=== PATIENT | male | born 1990 | race African-American/Black ===

== ENCOUNTER 2016-08-25 12:42 | Emergency (ER) | payer OTHER ==
[~2016-08-25] VITALS: Ht 188 cm; Wt 113.4 kg
--- NOTE | 2016-08-25 12:51 | ED GI/GU/ABDOMINAL COMPLAINT ---
See Addendum History of Present Illness General Chief Complaint: General Adult Stated Complaint: BIBA FROM PD LOCKUP FOR ?VOMITING BLOOD Source: patient Exam Limitations: no limitations Vital Signs & Intake/Output Vital Signs & Intake/Output Vital Signs Date Time Temp Pulse Resp B/P B/P Pulse O2 O2 Flow FiO2 Mean Ox Delivery Rate 08/25 1257 97.4 60 20 161/82 99 Allergies Coded Allergies: No Known Allergies (08/25/16) Reconcile Medications Ondansetron (Zofran Odt) 4 MG TAB.RAPDIS 1 TAB SL TID nausea Triage Nurses Notes Reviewed? yes Onset: Abrupt Duration: day(s): (3), getting worse Timing: recent history Quality/Severity: cramping, moderate, sharpness Location: generalized abdomen Radiation: no radiation No Modifying Factors: none HPI: 26-year-old male comes into emergency room for further evaluation for generalized abdominal pain and vomiting blood. Patient reports symptoms being going on for past few days. Denies any blood in his stool. Patient was sick a few weeks ago with similar symptoms. Denies any previous abdominal surgeries. Patient was brought in by police custody. Patient was arrested this past Friday night. He reports that he had some mild symptoms of chills on but his symptoms primarily began Friday night. Denies any other associated symptoms. (KAYLYN FORDE) Past History Travel History Traveled to [place] past 21 day No Medical History Any Pertinent Medical History? none Surgical History Surgical History: non-contributory Family History Hx Contributory? No (KAYLYN FORDE) Review of Systems Review of Systems Constitutional: Reports: no symptoms. EENTM: Reports: no symptoms. Respiratory: Reports: no symptoms. Cardiovascular: Reports: no symptoms. GI: Reports: see HPI. Genitourinary: Reports: see HPI. Musculoskeletal: Reports: no symptoms. Skin: Reports: no symptoms. Neurological/Psychological: Reports: no symptoms. Hematologic/Endocrine: Reports: no symptoms. Immunologic/Allergic: Reports: no symptoms. All Other Systems: Reviewed and Negative (KAYLYN FORDE) Physical Exam Physical Exam General Appearance: well developed/nourished, no apparent distress, alert, awake Head: atraumatic, normal appearance Eyes: Bilateral: normal appearance. Ears, Nose, Throat, Mouth: hearing grossly normal, moist mucous membrane Neck: normal inspection, full range of motion Respiratory: normal breath sounds, no respiratory distress Cardiovascular: regular rate/rhythm Gastrointestinal: soft, tenderness Back: normal inspection Extremities: normal range of motion Neurologic/Psych: awake, alert, oriented x 3, normal gait, normal mood/affect Skin: intact, normal color Core Measures ACS in differential dx? No Severe Sepsis Present: No Septic Shock Present: No (KAYLYN FORDE) Progress Differential Diagnosis: appendicitis, biliary colic, bowel obstruction, cholecystitis, diverticulitis, epididymitis, esophageal varices, gastritis, hepatitis, hernia, ischemic bowel, inflamm bowel dis, pancreatitis, prostatitis, peptic ulcer, PUD/GERD, perforated viscous, pyelonephritis, testicular torsion, ureterolithiasis, urinary retention, urethritis, UTI/pyelo Plan of Care: Orders Procedure Date/time Status Add-on Test (ER Only) 08/25 1456 Active Add-on Test (ER Only) 08/25 1447 Active CULTURE,URINE 08/25 1250 Active CHLAMYDIA-GC DNA PROBE 08/25 1250 Active URINALYSIS 08/25 1250 Complete PARTIAL THROMBOPLASTIN TIME 08/25 1250 Complete PROTHROMBIN TIME 08/25 1250 Complete LIPASE 08/25 1250 Complete LACTIC ACID 08/25 1250 Complete COMPREHENSIVE METABOLIC PANEL 08/25 1250 Complete CBC WITHOUT DIFFERENTIAL 08/25 1250 Complete AMYLASE 08/25 1250 Complete Laboratory Tests 08/25/16 1406: Urine Color YEL, Urine Clarity HAZY H, Urine pH 6.5, Ur Specific [place] 1.025, Urine Protein 30 H, Urine Ketones >=80, Urine Nitrite NEG, Urine Bilirubin POS@ ICTO H, Urine Urobilinogen 2.0 H, Ur Leukocyte Esterase SMALL H, Ur Microscopic SEDIMENT EXAMINED, Urine RBC RARE, Urine WBC 10-15 H, Urine Bacteria FEW H, Urine Mucus MANY H, Urine Hemoglobin NEG, Urine Glucose NEG 08/25/16 1256: Anion Gap 15, Estimated GFR > 60, BUN/Creatinine Ratio 12.5, Glucose 94, Lactic Acid 1.1, Calcium 9.8, Total Bilirubin 1.2, AST 13 L, ALT 36, Alkaline Phosphatase 74, Total Protein 7.8, Albumin 4.8, Globulin 3.0, Albumin/Globulin Ratio 1.6, Amylase 74, Lipase 103, PT 13.6 H, INR 1.30 H, APTT 32, CBC w Diff NO MAN DIFF REQ, RBC 5.48, MCV 83.7, MCH 27.7, RDW 12.6, MPV 10.2, Gran % 79.7 H, Lymphocytes % 15.5 L, Monocytes % 4.3, Eosinophils % 0.1, Basophils % 0.4, Absolute Granulocytes 8.1 H, Absolute Lymphocytes 1.6, Absolute Monocytes 0.4, Absolute Eosinophils 0, Absolute Basophils 0, PUBS MCHC 33.1 Microbiology 08/25 1249 URINE ROUT: Urine Culture - RECD 08/25 1249 URINE ROUT: GC DNA Probe - RECD 08/25 1249 URINE ROUT: Chlamydia DNA Probe (LILLIAM) - RECD Diagnostic Imaging: Viewed by Me: CT Scan. Discussed w/RAD: CT Scan. Radiology Impression: SERVICE DATE: 08/25/16 EXAM TYPE: CAT - CT ABD & PELVIS W/O IV CONTRAS EXAMINATION: CT ABDOMEN AND PELVIS WITHOUT CONTRAST CLINICAL INFORMATION: Abdominal pain. COMPARISON: Abdominal pain. TECHNIQUE: Multidetector volumetric imaging was performed from the superior aspect of the liver through the pubic symphysis. Sagittal and coronal reformatted images were obtained on the technologist's workstation. DLP: 935.05 mGy-cm FINDINGS: LUNG BASES: The visualized lung bases are unremarkable. LIVER, GALLBLADDER, AND BILIARY TREE: The liver is normal in size, shape, and attenuation. Within the anterior segment of the right hepatic lobe adjacent to the gallbladder fossa, a 2.8 cm cyst is seen of Hounsfield value 14.4 units. No focal hepatic lesion or biliary ductal dilatation is present. The gallbladder is unremarkable with no evidence of radiopaque gallstones, gallbladder wall thickening, or obvious pericholecystic inflammatory changes. PANCREAS: Unremarkable. SPLEEN: Unremarkable. ADRENAL GLANDS: Unremarkable. KIDNEYS AND URETERS: The kidneys are normal in size, shape, and attenuation. No hydronephrosis, hydroureter, or calculi seen. No perinephric stranding. BLADDER: Decompressed and otherwise unremarkable. GASTROINTESTINAL TRACT: There is a small hiatus hernia. The small and large bowel are unremarkable. No bowel obstruction, free intraperitoneal air or abscess is seen. There is no diverticulosis or diverticulitis. The appendix is unremarkable. ABDOMINAL WALL: There is a small fat-containing umbilical hernia. LYMPH NODES: No sizable abdominopelvic lymphadenopathy is seen. VASCULAR : Unremarkable. PELVIC VISCERA: The prostate and seminal vesicles are unremarkable. OSSEOUS STRUCTURES: There is very mild degenerative disc disease at T11-T12 and L5-S1. No acute or aggressive osseous abnormality is seen. IMPRESSION: 1. No bowel obstruction, free intraperitoneal air or abscess is seen. There is no appendicitis or diverticulitis. 2. There is a small hiatus hernia. 3. There is no urinary calculus or hydronephroureter bilaterally. 4. A low-attenuation hepatic cyst is incidentally noted. 5. There are mild thoracolumbar degenerative changes. DICTATED BY: RODDY MEEHAN MD DATE/TIME DICTATED:08/25/161400 SENIOR MECHANICAL PROJECT MANAGER:MARI DATE/TIME TRANSCRIBED:1400 Initial ED EKG: none Comments: 08/25/2016 3:09:25 PM Patient was given prophylactic treatment for gonorrhea and chlamydia. Urine culture and urine GC added. No acute findings and workup. Negative guaiac on rectal exam. Hemodynamically stable. Patient is safe to be discharged with follow-up with primary care doctor for nonspecific findings and CAT scan and further evaluation as needed. Return if any other concerns. Patient asked me to notify his mother and girlfriend. His girlfriend was notified on the prescription to milk pickup truck driver for him and bring to residential. He does not remember the number for his mom to call with results. case discussed with dr castano. (KAYLYN FORDE) Departure Departure Disposition: HOME OR SELF CARE Condition: Stable Clinical Impression Primary Impression: Abdominal pain Additional Instructions: Take Zofran ODT as prescribed. Follow-up with your primary care doctor. Return if any concerns worsening symptoms. Please go over all results of today's visit with your primary care doctor. Contact your primary care doctor to let them know you were here in the emergency room. There may be nonspecific findings which may not be related to your visit today here in the emergency room but may require further evaluation and chronic monitoring by your primary care doctor. If you had a laceration today the chance of foreign body always remains. You should follow-up with your primary care doctor for recheck in 3-5 days for a wound check. If you had an x-ray done there is a chance that a fracture could have been missed on initial read and you should follow-up with your primary care doctor for repeat x-rays if symptoms persist. If your blood pressure was elevated here in the emergency room please have rechecked by her primary care doctor within the next 48 hours by your primary care doctor. If you were prescribed a narcotic here in the emergency room or any type of controlled substances you're not allowed to drive while taking this medication or operate any type of heavy machinery. Narcotics can make you feel lightheaded dizziness nausea and can cause constipation. You may need to milk pickup truck driver a stool softener. Thank you for choosing [facility] emergency room. Please return to the emergency room immediately if you have any other concerns worsening of symptoms. Departure Forms: Customer Survey General Discharge Information Prescriptions: Current Visit Scripts Ondansetron (Zofran Odt) 1 TAB SL TID #10 TAB (KAYLYN FORDE) PA/CAT OPERATOR Co-Sign Statement Statement: ED Attending supervision documentation- [] I saw and evaluated the patient. I have also reviewed all the pertinent lab results and diagnostic results. I agree with the findings and the plan of care as documented in the PA's/CAT OPERATOR's documentation. [X] I have reviewed the ED Record and agree with the PA's/CAT OPERATOR's documentation. [] Additions or exceptions (if any) to the PAs/CAT OPERATOR's note and plan are summarized below: [] (SHASHA BORGES,MARIA EUGENIA Maciel)
[2016-08-25 13:11] LABS: ABSOLUTE BASOPHIL COUNT 0 /CUMM (0.0-0.2); ABSOLUTE EOSINOPHIL COUNT 0 /CUMM (0.0-0.7); ABSOLUTE GRANULOCYTE CT 8.1 /CUMM (1.4-6.5); ABSOLUTE LYMPH COUNT 1.6 /CUMM (1.2-3.4); ABSOLUTE MONOCYTE COUNT 0.4 /CUMM (0.10-0.60); BASOPHIL % 0.4 % (0.0-2.0); EOSINOPHIL % 0.1 % (0-5); GRANULOCYTE % 79.7 % (42.2-75.2); HEMATOCRIT 45.9 % (42-52); MEAN CORPUSCULAR HGB 27.7 PG (27.0-31.0); MEAN CORPUSCULAR HGB CONC 33.1 G/DL (33.0-37.0); MEAN CORPUSCULAR VOLUME 83.7 FL (80.0-94.0); MEAN PLATELET VOLUME 10.2 FL (7.4-10.4); PLATELET COUNT 169 /CUMM (130-400); RBC DISTRIBUTION WIDTH 12.6 % (11.5-14.5); RED BLOOD CELL CT 5.48 /CUMM (4.70-6.10); WHITE BLOOD CELL COUNT 10.1 /CUMM (4.8-10.8)
[2016-08-25 13:14] LABS: PT 13.6 SEC (9.4-12.5); PTT 32 SEC (25-37)
--- NOTE | 2016-08-25 14:13 | CT SCAN REPORT ---
EXAMINATION: CT ABDOMEN AND PELVIS WITHOUT CONTRAST CLINICAL INFORMATION: Abdominal pain. COMPARISON: Abdominal pain. TECHNIQUE: Multidetector volumetric imaging was performed from the superior aspect of the liver through the pubic symphysis. Sagittal and coronal reformatted images were obtained on the technologist's workstation. DLP: 935.05 mGy-cm FINDINGS: LUNG BASES: The visualized lung bases are unremarkable. LIVER, GALLBLADDER, AND BILIARY TREE: The liver is normal in size, shape, and attenuation. Within the anterior segment of the right hepatic lobe adjacent to the gallbladder fossa, a 2.8 cm cyst is seen of Hounsfield value 14.4 units. No focal hepatic lesion or biliary ductal dilatation is present. The gallbladder is unremarkable with no evidence of radiopaque gallstones, gallbladder wall thickening, or obvious pericholecystic inflammatory changes. PANCREAS: Unremarkable. SPLEEN: Unremarkable. ADRENAL GLANDS: Unremarkable. KIDNEYS AND URETERS: The kidneys are normal in size, shape, and attenuation. No hydronephrosis, hydroureter, or calculi seen. No perinephric stranding. BLADDER: Decompressed and otherwise unremarkable. GASTROINTESTINAL TRACT: There is a small hiatus hernia. The small and large bowel are unremarkable. No bowel obstruction, free intraperitoneal air or abscess is seen. There is no diverticulosis or diverticulitis. The appendix is unremarkable. ABDOMINAL WALL: There is a small fat-containing umbilical hernia. LYMPH NODES: No sizable abdominopelvic lymphadenopathy is seen. VASCULAR: Unremarkable. PELVIC VISCERA: The prostate and seminal vesicles are unremarkable. OSSEOUS STRUCTURES: There is very mild degenerative disc disease at T11-T12 and L5-S1. No acute or aggressive osseous abnormality is seen. IMPRESSION: 1. No bowel obstruction, free intraperitoneal air or abscess is seen. There is no appendicitis or diverticulitis. 2. There is a small hiatus hernia. 3. There is no urinary calculus or hydronephroureter bilaterally. 4. A low-attenuation hepatic cyst is incidentally noted. 5. There are mild thoracolumbar degenerative changes.
[2016-08-25] MEDS ORDERED: ZOFRAN ODT4 M1 SL (14:59)
[2016-08-25 18:08] VITALS: BP 155/80
== END 2016-08-25 18:18 ==
LOC: ERH 12:42
PROVIDERS: Physician Assistant Medical
DX: R10.84 Generalized abdominal pain (principal); K92.0 Hematemesis
CPT/HCPCS: 74176; 81001; 87086; 87491; 87591; 96372; 96374; 96375; J0696; J2405; J2550; J3101